=== PATIENT | male | born 1965 | race African-American/Black ===

== ENCOUNTER 2023-06-16 01:28 | Emergency (ER) | payer MEDICAID ==
[~2023-06-16] VITALS: Ht 172.7 cm; Wt 82.0 kg
[2023-06-16 01:34] VITALS: TEMP 98.6; O2SAT 98
[2023-06-16 02:00] VITALS: BP 150/100; PULSE 89; RESP 16
[2023-06-16] MEDS ORDERED: BACITRACIN ZINC OINT UDPKT TOP ONE (02:00)
[2023-06-16] MEDS ORDERED: AMOXICILLIN/POTASSIUM CLAVULANATE 875/125MG TAB PO ONE (02:00)
[2023-06-16] MEDS ORDERED: IBUPROFEN 600MG TABLET PO ONE (02:00)
[2023-06-16] MEDS ORDERED: LIDOCAINE HCL/PF 1% 10 MG/ML 5ML VIAL INFIL ONE (02:00)
[2023-06-16] MEDS ORDERED: TETANUS, DIPHTHERIA, PERTUSSIS VAC/PF 0.5ML (>10YR OLD) IM ONE (02:00)
[2023-06-16] MEDS ORDERED: IBUP-2029 MT (02:01)
[2023-06-16] MEDS ORDERED: AMOX1TAB16 MT (02:01)
== END 2023-06-16 03:33 | disposition home or self-care (01) ==
LOC: ER 01:28
DX: S81.812A Laceration without foreign body, left lower leg, initial encounter (principal); I10 Essential (primary) hypertension; W54.0XXA Bitten by dog, initial encounter; Y93.89 Activity, other specified; Y92.89 Other specified places as the place of occurrence of the external cause; Y99.8 Other external cause status
CPT/HCPCS: 73590; 90715; 12004; 90471; 99283; J3490; Z7610